=== PATIENT | female | born 1940 | race Hispanic/Latino ===

== ENCOUNTER 2019-10-27 19:51 | Emergency (ER) | payer MEDICARE ==
[~2019-10-27] VITALS: Ht 162.6 cm; Wt 86.2 kg
[~2019-10-27 19:51] MED LIST: ASPIR-LOW81 MG PO; GLIPIZIDE5 MG PO; JANUVIA100 MG PO; LASIX20 MG PO; LEVOTHYROXINE50 MCG PO; LISINOPRIL10 MG PO; METFORMIN HCL500 MG PO; METOPROLOL TART50 MG PO; SIMVASTATIN40 MG PO; VITAMIN D10000 UNIT PO
--- NOTE | 2019-10-27 20:58 | Emergency Department Note ---
History of Present Illnes History of Present Illness Chief Complaint: Headache History of Present Illness This is a 79 year old female with retro-orbital pain which started yesterday at noon and ceased at 2100. YE dissipated but reports having a self- limited YE which started at 1530. Historian: Patient Brusher Hand Required: No Onset (how long ago): day(s) (1) Severity: moderate Onset quality: sudden Duration (how long): day(s) (1) Timing of current episode: constant Progression: waxing and waning Chronicity: new Context: recent illness, recent surgery, recent immobilization, recent travel, trauma/injury, new medications, hx of DVT/PE, non-compliance w/ medications, other Relieving factors: none Exacerbating factors: none Associated symptoms: headaches Treatments prior to arrival: none Past Medical/Family History Physician Review I have reviewed the patient's past medical and family history. Any updates have been documented here. Past Medical History Recent Fever: No Clinical Suspicion of Infectio: No Past Medical History: Hypertension Social History Smoking Cessation: Never Smoker Alcohol Use: None Any Illegal Drug Use: No Review of Systems Review of Systems Constitutional: no symptoms EENTM: blurred vision Cardiovascular: no symptoms Respiratory: no symptoms Gastrointestinal: no symptoms Genitourinary: no symptoms Musculoskeletal: no symptoms Neurological: headache Psychological: no symptoms Endocrine: no symptoms Hematological/Lymphatic: no symptoms Review of other systems All other systems reviewed and negative. Physical Exam Related Data Allergies: Coded Allergies: Penicillins (Verified Allergy, Mild, RASH,SWELL, 02/13/10) Triage Vital Signs Vital Signs Date Time Temp Pulse Resp B/P (MAP) Pulse Ox O2 Delivery O2 Flow Rate FiO2 10/27/19 20:54 98.6 72 17 201/79 97 Vital signs reviewed: Yes Physical Exam CONSTITUTIONAL Constitutional: well-developed, well-nourished HENT HENT: normocephalic, atraumatic, oropharynx clear/moist, nose normal HENT L/R: left ext ear normal, right ext ear normal EYES Eyes: PERRL, conjunctivae normal NECK Neck: ROM normal PULMONARY Pulmonary: effort normal, breath sounds normal CARDIOVASCULAR Cardiovascular: regular rhythm, heart sounds normal, capillary refill normal, normal rate GASTROINTESTINAL Abdominal: soft, nontender, bowel sounds normal GENITOURINARY Genitourinary: exam deferred SKIN Skin: warm, dry MUSCULOSKELETAL Musculoskeletal: ROM normal NEUROLOGICAL Neurological: alert, oriented x 3, no gross motor or sensory deficits PSYCHOLOGICAL Psychological: mood/affect normal, judgement normal Results Imaging Imaging results reviewed: Yes Impressions [place] [address] Patient Name: ZAHRAA SIMON MR #: [id number] : 1940 Age/Sex: 79/F Req #: [id number] Adm Physician: Ordered by: PARKER MYRICK DO Report #: [id number] Location: ER Room/Bed: Procedure: [id number] CT/CT BRAIN WO Exam Date: 10/27/19 Exam Time: 2100 REPORT STATUS: Signed History:Headaches Comparison studies:None Technique: Axial images were obtained from the skull base to the vertex. Coronal and sagittal images reconstructed from the axial data. Intravenous contrast: None Dose modulation, iterative reconstruction, and/or weight based adjustment of the mA/kV was utilized to reduce the radiation dose to as low as reasonably achievable. Findings: Scalp/skull: No abnormalities. Extra-axial spaces: No masses. No fluid collections. Brain sulci: Mildly prominent. Ventricles: Mild compensatory dilatation. No hydrocephalus. Parenchyma: Subtle hypodensities in the supratentorial white matter are small vessel ischemic changes. Cortical-based hypodensity with volume loss at the left superior frontal gyrus posterior aspect and superior paracentral lobule, secondary to remote infarct. No masses, hemorrhage or acute cortical vascular insults. Sellar/suprasellar region: No abnormalities. Craniocervical junction: Patent foramen magnum. No Chiari one malformation. Incidental findings: Atherosclerotic calcifications in the carotid siphons and left vertebral artery . Impression: No acute abnormalities. Chronic findings: 1. Mild generalized volume loss. 2. Mild supratentorial white matter small vessel ischemic changes. 3. 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 Signed by: DR Jenaro Hicks M.D. on 10/27/2019 10:06 PM Dictated By: JENARO HERNANDEZ MD 05 Transcribed By: SEBAS on 10/27/192205 COPY TO: PARKER MYRICK DO~ Assessment & Plan Assessment & Plan Final Impression: (1) Headache (2) Elevated blood lead level Assessment & Plan CTS reviewed with patient. Repeat vitals shows marked improvement in blood pressures. Patient asymptomatic. Plan to discharge to home. Depart Disposition: HOME, SELF-CARE Last Vital Signs Date Time Temp Pulse Resp B/P (MAP) Pulse Ox O2 Delivery O2 Flow Rate FiO2 10/27/19 22:47 59 17 98 10/27/19 21:50 98.7 149/50 Home Meds Reported Medications Cholecalciferol (Vitamin D3) (VITAMIN D) 10,000 Unit Capsule, [address] INTLU PO DAILY 01/16/15 Metoprolol Tartrate (METOPROLOL TARTRATE) 50 Mg Tablet, 50 MG PO DAILY, TAB 01/16/15 Glipizide (GLIPIZIDE) 5 Mg Tablet, 5 MG PO BID, TAB 01/16/15 Simvastatin (SIMVASTATIN) 40 Mg Tablet, 40 MG PO 2100, #30 TAB 01/16/15 Metformin Hcl (METFORMIN HCL) 500 Mg Tablet, 500 MG PO DAILY, #60 TAB 01/16/15 Furosemide (LASIX) 20 Mg Tablet, 20 MG PO DAILY, #30 TAB 01/16/15 Lisinopril (LISINOPRIL) 10 Mg Tablet, 40 MG PO DAILY, #30 TAB 15 Sitagliptin Phosphate (JANUVIA) 100 Mg Tablet, 50 MG PO DAILY, #30 TAB 01/16/15 Levothyroxine Sodium (LEVOTHYROXINE SODIUM) 50 Mcg Tablet, 50 MCG PO DAILY, #30 TAB 15 Aspirin (ASPIR-LOW) 81 Mg Tablet., 41 MG PO DAILY 01/16/15 PARKER MYRICK DO October 27, 2019 20:58
--- NOTE | 2019-10-27 22:10 | Diagnostic Imaging Report ---
History:Headaches Comparison studies:None Technique: Axial images were obtained from the skull base to the vertex. Coronal and sagittal images reconstructed from the axial data. Intravenous contrast: None Dose modulation, iterative reconstruction, and/or weight based adjustment of the mA/kV was utilized to reduce the radiation dose to as low as reasonably achievable. Findings: Scalp/skull: No abnormalities. Extra-axial spaces: No masses. No fluid collections. Brain sulci: Mildly prominent. Ventricles: Mild compensatory dilatation. No hydrocephalus. Parenchyma: Subtle hypodensities in the supratentorial white matter are small vessel ischemic changes. Cortical-based hypodensity with volume loss at the left superior frontal gyrus posterior aspect and superior paracentral lobule, secondary to remote infarct. No masses, hemorrhage or acute cortical vascular insults. Sellar/suprasellar region: No abnormalities. Craniocervical junction: Patent foramen magnum. No Chiari one malformation. Incidental findings: Atherosclerotic calcifications in the carotid siphons and left vertebral artery . Impression: No acute abnormalities. Chronic findings: 1. Mild generalized volume loss. 2. Mild supratentorial white matter small vessel ischemic changes. 3. 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 Signed by: DR Jenaro Hicks M.D. on 10/27/2019 10:06 PM
[2019-10-27 22:47] VITALS: BP 146/50
--- OUTSIDE RECORDS SUMMARY | 2019-10-28 10:17 | XMS REPORT | Summary of Care ---
Author Organization Unknown Address Unknown Phone Unavailable Care Team Providers Care Supervisor Intelligence Analyst Name Role Phone Justine Galloway PCP Encounter HQ Encntr[facility]aliapoorva([facility] [phone] Date(s): 10/04/13 - 10/04/13 [facility] Outpatient Imaging - [address] [address]- [facility] Discharge Disposition: Home Physician Attending: Juan Westbrook MD Reason for Visit 404 - HTN HRT/CHRON K Problem List No data available for this section Allergies, Adverse Reactions, Alerts Substance Reaction Severity Status penicillin Active Medications No data available for this section Medications Administered During Your Visit No data available for this section Immunizations No data available for this section
--- OUTSIDE RECORDS SUMMARY | 2019-10-28 10:17 | XMS REPORT | Summary of Care ---
Author Author [facility] Outpatient Imaging - [facility] Organization [facility] Outpatient Imaging - [facility] Address Unknown Phone Unavailable Care Team Providers Care [place] Manager Name Role Phone Jimroxanna Justine Amna PCP Encounter HQ Cornelius_cruz([facility]) [phone] Date(s): 01/04/15 - 01/04/15 [facility] Outpatient Imaging [facility] [address] [address] [phone] Discharge Disposition: Home Attending Physician: Juan Westbrook MD Vital Signs No data available for this section Problem List Condition Effective Dates Status Health Status Informan t Benign essential Active hypertension1 Body mass index 30+ Active - obesity2 Hyperlipidemia3 Active Lactose intolerance4 Active Late effects of Active cerebrovascular disease5 Osteoarthritis of Active knee6 Type II diabetes Active mellitus uncontrolled7 Venous insufficiency Active of leg8 Vitamin D Active deficiency9 1Data migrated from [employer] on 11/05/14. 2Data migrated from [employer] on 11/05/14. 3Data migrated from [employer] on 11/05/14. 4Data migrated from [employer] on 11/05/14. 5Data migrated from [employer] on 11/05/14. 6Data migrated from [employer] on 11/05/14. 7Data migrated from [employer] on 11/05/14. 8Data migrated from [employer] on 11/05/14. 9Data migrated from [employer] on 11/05/14. Allergies, Adverse Reactions, Alerts Substance Reaction Severity Status penicillin Active penicillin V potassium1 Active 1Data migrated from [employer] on 10/06/14. Originally documented as PENICILLIN V POTASSIUM. Medications No data available for this section Results No data available for this section Immunizations No data available for this section Procedures No data available for this section Social History No data available for this section Assessment and Plan No data available for this section
--- OUTSIDE RECORDS SUMMARY | 2019-10-28 10:17 | XMS REPORT | Continuity of Care Document ---
Author Author [email or web address] ZAHRAA Powell [employer] Address Unknown Phone Unavailable Care Team Providers Care Head Track Coach Name Role Phone [employer] Unavailable Un available Problems Problem Status Onset Date Classification Date Reported Comments Source DX: ROUTINE SCREENING //M81.0=AGE-RELATE Active 09/13/2016 [facility] SCREENING MAMMO Active 01/11/2015 [facility] ROUTINE Active 11/19/2013 [facility] SCREENING (HX BREAST CA OVER 5YR AGO/NO IMPLTS) Active 01/21/2012 [facility] Benign essential hypertension (disorder) Active Problem 11/22/2017 Data migrated from [employer] on 11/05. [facility] Body mass index 30+ - obesity (finding) Active Problem 11/22/2017 Data migrated from [employer] on 11/05. [facility] Hyperlipidemia (disorder) Acti ve Problem Data migrated from [employer] on 11/05/14. [facility] Lactose intolerance (disorder) Active Problem Data migrated from [employer] on 11/05. [facility] Late effects of cerebrovascular disease (disorder) Active Problem 11/22/2017 Data migrated from [employer] on 11/05/14. [facility] Osteoarthritis of knee (disorder) Active Problem Data migrated from [employer] on 11/05. [facility] Type II diabetes mellitus uncontrolled (finding) Active Problem 11/22/2017 Data migrated from [employer] on 11/05. [facility] Venous insufficiency of leg (disorder) Active Problem Data migrated from [employer] on 11/05. [facility] Vitamin D deficiency (disorder) Active Problem Data migrated from [employer] on 11/05. PR[facility]ty [facility] SCREEN MAMMOGRAM NEC Active [facility] AGE-RELATED OSTEOPOROSIS W/O CURRENT PAT Active [facility] ENCNTR SCREEN MAMMOGRAM FOR MALIGNANT NE Active [facility] Medications No Data Provided for This Section Allergies, Adverse Reactions, Alerts Substance Category Reaction Severity Reaction type Status Date Reported Comments Source penicillin Assertion Drug allergy Active [facility] penicillin V potassium<sup>1</sup> Assertion Drug aller gy Active Data migrated from [employer] on 10/06/14. Originally documented as PENICILLIN V POTASSIUM. BERE Mathis Immunizations Immunization Date Given Site Status Last Updated Comments Source Hx influenza vaccine-unspecified<sup>1</sup> 04/21/2012 completed GE Result Comment: historical. Migrated from OBS ; Data migrated from [employer] on 07/11/2015. [facility] pneumococcal 23-valent vaccine<sup>2</sup> 02/07/2009 completed GE Result Comment: pneumovax. Migrated from OBS ; Data migrated from [employer] on 07/11/2015. [facility] Results No Data Provided for This Section Pathology Reports No Data Provided for This Section Diagnostic Reports Report Value Date Source Breast Mammo Scrn RASHEEDA incl CAD MA - BREAST MAMMO SCRN RASHEEDA INCL CAD MA BILATERAL DIGITAL SCREENING MAMMOGRAM WITH CAD: 10/18/2016 CLINICAL: Routine. Current study was evaluated with a Computer Aided Detection (CAD) system. Comparison is made to exams dated: 02/03/2015 mammogram, 11/24/2013 mammogram, 02/11/2012 mammogram, 03/16/2010 mammogram, 10/21/2008 mammogram - [facility] and 05/19/2008 mammogram - [facility] Outpatient Imaging Department. The tissue of both breasts is almost entirely fat. Tangential view of the left breast mastectomy site is unremarkable. There are benign calcifications in both breasts. There also are benign vascular calcifications in the right breast. No significant masses, calcifications, or other findings are seen in either breast. There has been no significant interval change. IMPRESSION: BENIGN The patient is status post left mastectomy. There is no mammographic evidence of malignancy. A 1 year screening mammogram is recommended. Óscar clay/barbara:10/24/2016 14:57:46 Vacuum Drier Tender: Paola Woodard, [facility] This exam was dictated and interpreted by [id number] for [facility]. letter sent: Normal exam Mammogram BI-RADS: 2 Benign 10/18/2016 [facility] Bone Density Scan Patient Name : ZAHRAA SIMON : 1940; Age: 76 years y/o Female MR: [id number] Study: Bone Density Scan 10/18/2016 9:22 AM CDT Ordering Physician: Juan Westbrook MD Clinical Indication: M81.0 Age-related osteoporosis without current pathological fracture. Comparison: Bone density scan 11/24/2013 FINDINGS: The axial lumbar bone mineral density is 160% of the expected age matched bone mass with a T-score 1.5. Axial lumbar average BMD is 1.217 g/cm2. The left femoral neck bone mineral density is 125% of the expected age matched bone mass with a T-score of -0.9. Left femoral neck BMD is 0.766 g/cm2. The total femoral BMD is 0.854 g/cm2. IMPRESSION: 1. Normal bone mineral density of the raoul mbar spine. There has been a 1.8% increase in lumbar spine bone mineral density since 11/24/2013 2. Normal bone mineral density of the le ft femoral neck. There has been a 0.1% decrease in bone mineral density of the total left hip since 11/24/2013. The World Health Organization has established that OSTEOPOROSIS occurs at -2.5 or more standard deviations (SD) below peak bone mass. OSTEOPENIA (low bone mass) occurs at -1.0 standard deviations to -2.5 standard deviations below peak bone mass. SL: [id number] 10/18/2016 [facility] Spine lumbar series DX EXAMINA TION: Lumbar spine series HISTORY: Lumbago; lumbar spondylosis FINDINGS: Frontal, lateral, bilateral oblique, and coned views of the lumbar spine are performed and compared to 01/04/2015. There is unchanged mild retrolisthesis of L1 on L2, L2 on L3, and L3 on L4. The vertebral body heights are normal without compression fracture. There is unchanged mild to moderate L1-L2 through L2-L3, moderate to severe L3-L4, mild to moderate L4-L5, and moderate L5-S1 degenerative disc disease. Bilateral lower lumbar facet osteoarthritis is noted. There are no pars interarticularis defects. There is abutment of the posterior elements of the lumbar spine. There is diffuse idiopathic skeletal hyperostosis of the visualized lower thoracic spine. The sacral ala appear intact. There is atherosclerotic calcification of the aorta. IMPRESSION: 1. Unchanged multilevel degenerative dis c disease of the lumbar spine as described above, most severe at L3-L4, with bilateral lower lumbar facet osteoarthritis 2. Unchanged multilevel spondylolisthesi s of the lumbar spine as described above. 3. 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 4. Diffuse idiopathic skeletal hyperosto sis of the visualized lower thoracic spine. 5. Atherosclerotic aorta. 11/30/2015 [facility] Mammo Screening Rasheeda MA - DIGITAL MAMMO SCREENING RASHEEDA MA BILATERAL DIGITAL SCREENING MAMMOGRAM WITH CAD: 02/03/2015 CLINICAL: Routine. Current study was evaluated with a Computer Aided Detection (CAD) system. Comparison is made to exams dated: 11/24/2013 mammogram, 02/11/2012 mammogram, 03/16/2010 mammogram, 10/21/2008 mammogram - [facility], 05/19/2008 mammogram - [facility] Outpatient Imaging Department and 01/14/2008 mammogram - [facility]. The tissue of both breasts is almost entirely fat. Tangential view of the left breast mastectomy site is unremarkable. There are benign calcifications in both breasts. There also are benign vascular calcifications in the right breast. No significant masses, calcifications, or other findings are seen in either breast. There has been no significant interval change. IMPRESSION: BENIGN The patient is status post left mastectomy. There is no mammographic evidence of malignancy. A 1 year screening mammogram is recommended. Óscar clay/penrad:02/06/2015 09:43:26 Vacuum Drier Tender: Loreta Jasso, [facility] This exam was dictated and interpreted by [id number] for [facility]. letter sent: Normal exam Mammogram BI-RADS: 2 Benign 02/03/2015 [facility] Chest 2 views DX Exam: Two-vie w chest x-ray Reason for Exam: Hypertension Comparison Exam: Chest x-ray 10/04/2013 Discussion: Cardiomediastinal silhouette is within normal limits. Both hemidiaphragms well visualized. No pulmonary edema or pleural effusions. No focal lung consolidations. Trachea is midline. Moderate multilevel degenerative disc disease seen within the thoracic spine. Impression: 1. No acute cardiopulmonary abnormaliti es. 01/04/2015 [facility] lumbar 2 or 3 views DX E XAM: Spine lumbar AP lateral HISTORY: back pain COMPARISON: None AP alignment is overall normal. There is moderate multilevel disc space narrowing and endplate osteophyte formation. Advanced facet arthropathy of the lower lumbar spine. Vertebral body heights are maintained. Heavy calcification of the aorta is noted. IMPRESSION: Degenerative change as above. 01/04/2015 [facility] Chest 2 views Chest x-ray 2 vi ews INDICATION: Hypertension COMPARISON: 06/18/2007 FINDINGS: Heart size and central vasculature are within normal limits. There is no effusion or focal pneumonia. No pneumothorax. No acute osseous pathology. IMPRESSION: No acute cardiopulmonary process. 10/04/2013 [facility] [place] Consultation Notes No Data Provided for This Section Discharge Summaries No Data Provided for This Section History and Physicals No Data Provided for This Section Vital Signs No Data Provided for This Section Encounters Location Location Details Encounter Type Encounter Number Reason For Visit Attending Provider ADM Date DC Date Status Source [facility] Outpatient [id number] SCREENING (HX BHARATI AST CA OVER 5YR AGO/NO IMPLTS) FARHAD YOUNG 02/11/2012 Active [facility] [id number] Juan Westbrook 10/04/2013 10/05/2013 [facility] [id number] 01 Juan Westbrook 01/04/2015 01/05/2015 [facility] Outpatient [id number] Juan Westbrook 02/03/2015 02/04/2015 [facility] [id number] 02 Juan Westbrook 11/30/2015 12/01/2015 [facility] Outpatient [id number] Juan Westbrook 10/18/2016 10/19/2016 [facility] [id number] 03 Juan Westbrook 11/19/2017 11/20/2017 [facility] Procedures No Data Provided for This Section Assessment and Plan No Data Provided for This Section Plan of Care No Data Provided for This Section Social History Social History Date Source No data available for this section 11/20/2017 ANNALISA Mathis No data available for this section 10/19/2016 [facility] Family History No Data Provided for This Section Advance Directives No Data Provided for This Section Functional Status No Data Provided for This Section
--- OUTSIDE RECORDS SUMMARY | 2019-10-28 10:17 | XMS REPORT | Summary of Care ---
Author Author [facility] Organization [facility] Address Unknown Phone Unavailable Encounter HQ Morgan(CLAY) [id number] Date(s): 10/18/16 - 10/18/16 [facility] [address] [place] [address]- [phone] Discharge Disposition: Home or Self Care Attending Physician: Juan Westbrook MD Referring Physician: Juan Westbrook MD Vital Signs No [...] No data available for this section Immunizations Given and Recorded Vaccine Date Status Refusal Reason Hx influenza vaccine-unspecified1 04/21/12 Give n pneumococcal 23-valent vaccine2 9/1/09 Given 1Result Comment: historical. Migrated from OBS ; Data migrated from [employer] on 07/11/2015. 2Result Comment: pneumovax. Migrated from OBS ; Data migrated from [employer] on 07/11/2015. Procedures No data available for this section Social History No data available for this section Assessment and Plan No data available for this section
--- OUTSIDE RECORDS SUMMARY | 2019-10-28 10:17 | XMS REPORT | CCD ---
Author Author Auto Generated, ZAHRAA SUH [facility] Address Unknown Phone Unavailable Care Team Providers Care Director Of Philanthropy Name Role Phone Justine Galloway PP Arnie Shelton RP Allergies, Adverse Reactions, Alerts Substance Reaction Status penicillin Active
--- OUTSIDE RECORDS SUMMARY | 2019-10-28 10:17 | XMS REPORT | Summary of Care ---
Author Author [facility] Outpatient Imaging - [facility] Organization [facility] Outpatient Imaging - [facility] Address Unknown Phone Unavailable Care Team Providers Care Sample Driller Name Role Phone Mikekimmy Justine Amna PCP Encounter [facility](OQK) [phone] Date(s): 11/30/15 - 11/30/15 [facility] Outpatient Imaging [facility] [address] [phone] Discharge Disposition: Home Attending Physician: Juan Westbrook [...] vaccine-unspecified1 04/21/12 Give n pneumococcal 23-valent vaccine2 02/07/09 Given 1Result Comment: historical. Migrated from OBS ; Data migrated from [employer] on 07/11/2015. 2Result Comment: pneumovax. Migrated from OBS ; Data migrated from [employer] on 07/11/2015. Procedures No data available for this section Social History No data available for this section Assessment and Plan No data available for this section
--- OUTSIDE RECORDS SUMMARY | 2019-10-28 10:17 | XMS REPORT | Summary of Care ---
Author Author [facility] Outpatient Imaging - [facility] Organization [facility] Outpatient Imaging - [facility] Address Unknown Phone Unavailable Encounter LENA Mora(FIN) [phone] Date(s): 11/19/17 - 11/19/17 [facility] Outpatient Imaging [facility] [address] [phone] Discharge Disposition: Home or Self Care Attending Physician: Juan Westbrook MD Vital Signs [...] from OBS ; Data migrated from [employer] on 07/11/2015. 2Result Comment: pneumovax. Migrated from OBS ; Data migrated from [employer] on 07/11/2015. Procedures No data available for this section Social History No data available for this section Assessment and Plan No data available for this section
--- OUTSIDE RECORDS SUMMARY | 2019-10-28 10:17 | XMS REPORT | Summary of Care ---
Author Author [facility] Organization [facility] Address Unknown Phone Unavailable Care Team Providers Care Internal Grinding Machine Operator Name Role Phone JimJustine mcknight Amna PCP Encounter [facility](AHM) [phone] Date(s): 02/03/15 - 02/03/15 [facility] [address] [place] [address]- Discharge Disposition: Home Attending Physician: Juan Westbrook MD Referring Physician: [...]
== END 2019-10-27 22:53 | disposition home or self-care (01) ==
LOC: ER 19:51
DX: R51 Headache (principal); I10 Essential (primary) hypertension; R60.9 Edema, unspecified; E11.9 Type 2 diabetes mellitus without complications; E78.5 Hyperlipidemia, unspecified; E03.9 Hypothyroidism, unspecified
CPT/HCPCS: 70450; 99283